=== PATIENT | male | born 1965 | race Caucasian/White ===

== ENCOUNTER 2022-08-19 14:03 | Emergency (ER) | payer OTHER ==
[2022-08-19] MEDS ORDERED: Sodium Chloride 0.9% 10 ML Syringe FLUSH PRN (14:27)
[2022-08-19] MEDS ORDERED: Diltiazem 25 MG/5 ML SDV IVPUSH ONE (14:29)
[2022-08-19] MEDS ORDERED: Diltiazem 125 MG in Sodium Chloride 0.9% 100 ML IV SCH (14:30)
[2022-08-19] MEDS ORDERED: LORazepam 2 MG/ML SDV IVPUSH ONE (18:26)
[2022-08-19] MEDS ORDERED: Diltiazem 120 MG Cap.CD PO ONE (18:58)
[2022-08-19] MEDS ORDERED: Apixaban 5 MG Tab PO ONE (19:21)
== END 2022-08-19 19:45 | disposition home or self-care (01) ==
LOC: JD.ED 14:03
DX: I48.20 Chronic atrial fibrillation, unspecified (principal); I10 Essential (primary) hypertension; Z79.01 Long term (current) use of anticoagulants
CPT/HCPCS: 36415; 80053; 84443; 84484; 85025; 93005; 96365; 96366; 96375; 99285; A9270; J2060; J3490

== ENCOUNTER 2022-11-25 22:21 | Emergency (ER) | payer OTHER | END 2022-11-25 23:53 | disposition home or self-care (01) | LOC: JD.ED 22:21 | DX: R07.0 Pain in throat (principal); Z88.1 Allergy status to other antibiotic agents; Z79.01 Long term (current) use of anticoagulants; Z86.16 Personal history of COVID-19 | CPT/HCPCS: 99282; 99283 ==